=== PATIENT | male | born 1995 | race African-American/Black ===

== ENCOUNTER 2017-06-10 11:04 | Emergency (ER) | payer BC ==
[2017-06-10] MEDS ORDERED: levETIRAcetam 500 MG TAB PO SCH (12:45)
== END 2017-06-10 11:48 | disposition home or self-care (01) ==
LOC: ERS 11:04
DX: R56.9 Unspecified convulsions (principal)
CPT/HCPCS: 99284

== ENCOUNTER 2018-10-16 20:33 | Emergency (ER) | payer BC, SELFPAY ==
[2018-10-16 21:10] LABS: #Lymphocytes 1.8 thou/uL (1.20-3.40); #Monocytes 0.9 thou/uL (0.11-0.59); #Neutrophils 5.7 thou/uL (1.40-6.50); %Basophils 0.1 % (0.0-1.0); %Eosinophils 0.3 % (0.0-10.0); %Lymphocytes 21.4 % (21.0-51.0); %Monocytes 10.4 % (0.0-10.0); %Neutrophils 67.8 % (42.0-75.0); Hemoglobin 14.3 g/dL (14.0-18.0); Mean Corpuscular HGB CONC 32.9 g/dL (32.0-36.0); Mean Corpuscular Hemoglobin 31.7 pg (27.0-31.0); Mean Corpuscular Volume 96.2 fL (78.0-98.0); Mean Platelet Volume 7.1 fL (7.4-10.4); Platelet Count 253 thou/uL (130-400); RBC Distribution Width 13.3 % (11.5-14.5); Red Blood Cell (RBC) Count 4.52 mill/uL (4.70-6.10); White Blood Cell (WBC) Count 8.4 thou/uL (4.8-10.8)
[2018-10-16] MEDS ORDERED: Ibuprofen 200 MG TAB ONE (21:20)
[2018-10-16] MEDS ORDERED: Ondansetron ODT 4 MG TAB ONE (21:20)
[2018-10-16 21:32] LABS: ALT (SGPT) 15 U/L (8-55); AST (SGOT) 24 U/L (5-34); Albumin 4.6 g/dL (3.5-5.0); Alkaline Phosphatase 63 U/L (40-150); Anion Gap 11 mmol/L (10-20); BUN (Urea Nitrogen) 12 mg/dL (8.9-20.6); Bilirubin, Total 0.7 mg/dL (0.2-1.2); Calc. Creatinine Clearance 0 mL/min (70-130); Calcium 9.7 mg/dL (7.8-10.44); Carbon Dioxide 28 mmol/L (22-29); Chloride 104 mmol/L (98-107); Estimated GFR-MDRD 65; Globulin 2.8 g/dL (2.4-3.5); Glucose 80 mg/dL (70-105); Potassium 3.6 mmol/L (3.5-5.1); Protein, Total 7.4 g/dL (6.0-8.3); Sodium 139 mmol/L (136-145)
[2018-10-16] MEDS ORDERED: Metoclopramide HCl 10 MG/2 ML VIAL ONE (22:01)
[2018-10-16] MEDS ORDERED: Acetaminophen 500 MG TAB ONE (22:01)
[2018-10-16] MEDS ORDERED: diphenhydrAMINE 50 MG/ML VIAL ONE (22:01)
--- NOTE | 2018-10-16 22:20 | CT ---
CT Brain WO Con History: [Seizure. Headache.] Comparison: CT brain 2015 Findings: No acute hemorrhage or infarct. No midline shift or mass effect. Ventricular size and extra -axial CSF spaces are normal. Calvarium is intact. Paranasal sinuses and mastoids are clear. Impression: No acute intracranial abnormality.
== END 2018-10-16 23:34 | disposition home or self-care (01) ==
LOC: ERS 20:33
DX: R56.9 Unspecified convulsions (principal); S00.511A Abrasion of lip, initial encounter; J06.9 Acute upper respiratory infection, unspecified; Z79.899 Other long term (current) drug therapy; X58.XXXA Exposure to other specified factors, initial encounter
CPT/HCPCS: 36415; 70450; 80053; 80177; 85025; 87804; 96365; 96375; J1200; J2765; Q0162